=== PATIENT | male | born 1955 | race Two or more races ===

== ENCOUNTER 2023-02-06 05:30 | Day surgery (SDC) | payer OTHER ==
[~2023-02-06] VITALS: Ht 182.9 cm; Wt 104.3 kg
[~2023-02-06 05:30] MED LIST: HYDROCHLOROTHIA25 MG PO; LIPITOR20 MG PO; LOSARTAN POTASS50 MG PO; METFORMIN HCL1000 M2 PO; TAMS0.4C PO
[2023-02-06] MEDS ORDERED: COLACE100 MG PO (12:07)
[2023-02-06] MEDS ORDERED: NEURONTIN300 MG PO (12:07)
[2023-02-06] MEDS ORDERED: MIRALAX17 GM PO (12:07)
[2023-02-06] MEDS ORDERED: PERCOCET 5-3251 EACH PO (12:07)
== END 2023-02-06 14:35 | disposition home or self-care (01) ==
LOC: CIR.AMB 05:30
PROVIDERS: ATTEND Surgery
DX: K60.3 Anal fistula (principal); K62.89 Other specified diseases of anus and rectum; Z20.822 Contact with and (suspected) exposure to COVID-19; I10 Essential (primary) hypertension; Z88.6 Allergy status to analgesic agent